=== PATIENT | male | born 2000 | race Hispanic/Latino ===

== ENCOUNTER 2021-10-22 19:06 | Emergency (ER) | payer OTHER ==
[~2021-10-22] VITALS: Ht 157.5 cm; Wt 87.5 kg
[2021-10-22] MEDS ORDERED: Morphine 4mg INJECTION 4 MG/ML INJ IV ONE (19:45)
[2021-10-22] MEDS ORDERED: ONDANSETRON HCL INJ 2MG/ML 2ML 2 MG/ML VIAL IV STA (19:51)
[2021-10-22] MEDS ORDERED: Morphine 4mg INJECTION 4 MG/ML INJ ONE (20:12)
[2021-10-22] MEDS ORDERED: ONDANSETRON HCL INJ 2MG/ML 2ML 2 MG/ML VIAL ONE (20:12)
[2021-10-22 22:22] VITALS: BP 126/76
== END 2021-10-22 22:22 | disposition home or self-care (01) ==
LOC: FSED 19:13
DX: S00.83XA Contusion of other part of head, initial encounter (principal); S20.211A Contusion of right front wall of thorax, initial encounter; R51.9 Headache, unspecified; Y04.8XXA Assault by other bodily force, initial encounter; Y92.89 Other specified places as the place of occurrence of the external cause
CPT/HCPCS: 70450; 70486; 71046; 71260; 72125; 74177; 96374; 96375; 99283; J2270; J2405